=== PATIENT | male | born 1985 ===

== ENCOUNTER 2020-02-06 11:00 | Outpatient (CLI) | payer BC ==
--- NOTE | 2020-02-06 12:05 | ULT ---
HEPATIC ULTRASOUND WITH HEPATIC DOPPLER: Date: 02/06/2020 INDICATION: Right upper quadrant pain and epigastric pain. FINDINGS: Gallbladder has a normal sonographic appearance. No evidence of gallstones. Common duct is normal caliber. Liver is mildly echogenic suggesting mild fatty infiltration. Color Doppler and spectral analysis performed on the hepatic vessels. Hepatic veins, portal veins, sp lenic vein, and hepatic arteries all show normal Doppler signal with hepatopetal blood flow. Pancreas is partially imaged and appears unremarkable as visualized. Right kidney is not well imaged. Spleen is imaged and appears normal size. IMPRESSION: 1. Normal hepatic Doppler. 2. Mild hepatic steatosis. 3. Gallbladder unremarkable. POS: [facility]W
== END 2020-02-06 11:01 | disposition home or self-care (01) ==
LOC: BICULT 11:00
PROVIDERS: ATTEND Internal Medicine Gastroenterology
DX: R10.11 Right upper quadrant pain (principal); R10.13 Epigastric pain; K76.0 Fatty (change of) liver, not elsewhere classified
CPT/HCPCS: 76705